=== PATIENT | female | born 1995 | race Caucasian/White ===

== ENCOUNTER 2025-01-21 12:56 | Emergency (ER) | payer OTHER, SELFPAY ==
[2025-01-21 13:01] VITALS: BP 174/117; PULSE 112; RESP 14; TEMP 36.6; O2SAT 98; BMI 28.3
--- NOTE | 2025-01-21 13:27 | PC.NURSE ---
I offered pt tylenol and ibuprofen. Pt declined at this time. Pt given saltine crackers.
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
[2025-01-21] MEDS: ONDANSETRON 4 MG ODT SL (14:25)
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
[2025-01-21 18:30] VITALS: BP 130/65; PULSE 68; RESP 16; TEMP 37.1; O2SAT 99
[2025-01-21 18:53] LABS: Bacteria Urine Many (>30); RBC Urine 0-1/HPF (0-5/HPF); Squamous Epithelial Cell Urine 10-30 /HPF (0-5/HPF); Urine Volume 10mL (spun); WBC Urine 1-5/HPF (0-5/HPF)
[2025-01-21 18:54] LABS: Culture Indicated Urine Cult Not Indicated
[2025-01-21 19:16] LABS: Urine N gonorrhoeae NOT DETECTED
[2025-01-21 19:17] LABS: Urine Chlamydia NOT DETECTED
[2025-01-21 19:22] LABS: UR Morphine/Opiate cutoff 300 Negative (Negative); Ur Creatinine Normal (Normal); Ur Specific Gravity Normal (Normal); Urine Amphetamines Negative (Negative); Urine Barbiturates Negative (Negative); Urine Benzodiazepines Negative (Negative); Urine Cocaine Negative (Negative); Urine MDMA Negative (Negative); Urine Methadone Negative (Negative); Urine Methamphetamines Negative (Negative); Urine Oxycodone Negative (Negative); Urine Phencyclidine Negative (Negative); Urine Tetrahydrocannabinol Negative (Negative); Urine Tricyclic Antidepressant Negative (Negative); Urine pH Normal (Normal)
--- NOTE | 2025-01-22 16:38 | PC.NURSE ---
Detailed SANE Charting in [place] Envelope in lock box inside locked SANE Cabinet, charge aware.
[2025-01-25 19:07] LABS: Chlamydia trachomatis Negative (Negative); Mycoplasma genitalium Negative (Negative); Neisseria gonorrhoeae Negative (Negative)
== END 2025-01-21 18:30 | disposition home or self-care (01) ==
PROVIDERS: Emergency Provider Emergency Medicine
DX: T74.21XA Adult sexual abuse, confirmed, initial encounter (principal); R00.0 Tachycardia, unspecified; Z33.1 Pregnant state, incidental
CPT/HCPCS: 80305; 81003; 81015; 81025; 87070; 87086; 87205; 87210; 87491; 87563; 87591; 99284